=== PATIENT | male | born 1995 | race Caucasian/White ===

== ENCOUNTER 2016-12-13 14:36 | Emergency (ER) | payer SELFPAY ==
[~2016-12-13] VITALS: Wt 70.0 kg
[~2016-12-13 14:36] MED LIST: BACTDS PO; ELIM TOP; HYDR-3498 PO; KENC1 TOP
[2016-12-13 17:50] LABS: ADD SCAN DIFF NO
[2016-12-13 17:51] LABS: BASOPHIL # 0.1 10^3/ul (0.0-0.1); BASOPHILS % 0.6 % (0.0-2.0); EOSINOPHILS # 0.1 10^3/ul (0.0-0.5); EOSINOPHILS % 1.6 % (0.0-7.0); HEMATOCRIT 41.8 % (42.0-52.0); HEMOGLOBIN 14.3 g/dl (14.0-18.0); LYMPHOCYTES # 2.2 10^3/ul (0.8-2.9); LYMPHOCYTES % 26.5 % (15.0-51.0); MEAN CORPUSCULAR HEMOGLOBIN 30.2 pg (29.0-33.0); MEAN CORPUSCULAR HGB CONC 34.2 g/dl (32.0-37.0); MEAN CORPUSCULAR VOLUME 88.4 fl (82.0-101.0); MEAN PLATELET VOLUME 10.3 fl (7.4-10.4); MONOCYTE # 0.9 10^3/ul (0.3-0.9); MONOCYTES % 10.5 % (0.0-11.0); NEUTROPHIL # 4.9 10^3/ul (1.6-7.5); NEUTROPHILS % 60.6 % (39.0-77.0); PLATELET COUNT 257 10^3/UL (140-415); RED BLOOD COUNT 4.73 10^6/ul (4.70-6.10); WHITE BLOOD COUNT 8.1 10^3/ul (4.8-10.8)
[2016-12-13 18:03] LABS: ALBUMIN 4.7 g/dl (3.3-4.9); POTASSIUM 4.1 mmol/L (3.5-5.1)
[2016-12-13 18:05] LABS: BILIRUBIN,INDIRECT 0.3 mg/dl (0-1.1); BILIRUBIN,TOTAL 0.3 mg/dl (0.2-1.3); CREATININE 0.81 mg/dl (0.61-1.24)
[2016-12-13 18:06] LABS: ALBUMIN/GLOBULIN RATIO 1.38; CALCIUM 9.9 mg/dl (8.4-10.2); TOTAL PROTEIN 8.1 g/dl (6.1-8.1)
[2016-12-13] MEDS ORDERED: SOD CHLORIDE 0.9% 100 ML ONE (18:19)
[2016-12-13] MEDS ORDERED: IOHEXOL 300MG/ML 150 ML BTL ONE (18:19)
--- NOTE | 2016-12-13 19:05 | RADRPT ---
PROCEDURE: CT Abdomen and Pelvis with Contrast CLINICAL INDICATION: Abdominal pain TECHNIQUE: Transaxial images were obtained through the abdomen and pelvis on a multi-slice scanner following the intravenous administration of iodinated contrast. No oral contrast had previously be en given. Sagittal and coronal re-formations were subsequently reconstructed. One or more of the following dose reduction techniques were used: - Automated exposure control. - Adjustment of the mA and/or kV according to patient size. - Use of iterative reconstruction technique. Radiation dose: CTDIvol = 5.37 mGy; DLP = 286.62 mGy-cm. COMPARISON: No prior studies are available for comparison. FINDINGS: Lung bases: The visualized lung bases appear unremarkable. Liver: The liver is mildly enlarged but no focal lesion is evident. The hepatic and portal veins ar e patent. Gallbladder: The wall is not thickened. No radiopaque stones are identified. Bile ducts: The intra and extrahepatic bile ducts are normal in caliber. Pancreas: Appears normal with no mass or inflammation evident. Spleen: Normal in size with no focal lesion. Adrenals: Normal with no mass identified. Kidneys, ureters and bladder: The kidneys enhance normally and are normal in size and there is no ma ss, pathological calcification, or hydronephrosis evident. There is no perinephric stranding. The ur eters are normal in caliber and no ureteroliths are identified. The bladder appears unremarkable. Reproductive organs: Unremarkable. Stomach, bowel, and mesentery: The stomach appears unremarkable. There is no evidence of bowel obst ruction. There is increased neck mass to the rectum with slight stranding of the perirectal fat almaraz sing the suspicion of proctitis. No other area of bowel inflammation is evident.. Appendix: A normal vermiform appendix is evident. Peritoneum: No free intraperitoneal fluid or air is identified. Aorta: Normal in caliber with no aneurysmal dilatation. IVC: Unremarkable. Lymph nodes: A few perirectal nodes up to 5 mm in diameter are noted. Osseous structures: The osseous elements appear intact. There is a combination of slight posterior s purring with a 4 mm central posterior disk protrusion at L5-S1. IMPRESSION: 1. Thickening of the rectal wall with slight stranding in the adjacent fat along with perirectal ly mph nodes suspicious for proctitis. The bowel is otherwise unremarkable without evidence of obstruc tion or inflammation and with a normal-appearing vermiform appendix evident. 2. No evidence of urinary outflow obstruction or ureterolithiasis. The bladder appears normal. 3. Mild hepatomegaly with no focal lesion. 4. Posterior spurring with a 4 mm central posterior disk protrusion and L5-S1. Physician Tana Date Time Electronically viewed and signed by Buster Martinez Physician on 12/13/2016 19:05 /
[2016-12-13] MEDS ORDERED: METR500T PO (19:26)
[2016-12-13] MEDS ORDERED: DOCU-144 PO (19:26)
[2016-12-13] MEDS ORDERED: CIPR500T4 PO (19:26)
[2016-12-13] MEDS ORDERED: TRAM-40 PO (19:27)
[2016-12-13] MEDS ORDERED: CEFTRIAXONE 1 GM/50 ML (PMX) 50 ML IVPB ONE (19:30)
[2016-12-13] MEDS ORDERED: CIPROFLOXACIN 400MG/D5W 200 ML IVPB ONE (19:30)
--- NOTE | 2016-12-13 19:48 | ERD ---
ER Documentation Chief Complaint Date/Time DATE: 12/13/16 TIME: 19:45 Chief Complaint PAIN ON BM AND SOME BLOOD IN STOOLS INTERMITTENT FOR 4 DAYS. NO AP HPI This 21-year-old male presents with a four-day history of pain with bowel movements and some bright red blood in the stool associated with some mucus and discharge. Feels that some pain is on the inside of his rectum. He denies any external lesions. Further history by patient after examination treatment shows that he is being treated for possible STD exposure with postexposure prophylaxis for HIV and been told he likely has symptoms of gonorrhea but he denies any anal receptive course ROS All systems reviewed and are negative except as per history of present illness. Medications Home Meds Active Scripts Tramadol Hcl* (Ultram*) 50 Mg Tablet, 50 MG PO Q6H Y for PAIN, #14 TAB Prov:EVGENY MEDINA MD 12/13/16 Docusate Sodium* (Colace*) 100 Mg Capsule, 100 MG PO BID, #20 CAP Prov:EVGENY MEDINA MD 12/13/16 Metronidazole* (Flagyl*) 500 Mg Tablet, 500 MG PO BID for 7 Days, TAB Prov:EVGENY MEDINA MD 12/13/16 Ciprofloxacin Hcl* (Ciprofloxacin Hcl*) 500 Mg Tablet, 500 MG PO BID for 7 Days , TAB Prov:EVGENY MEDINA MD 12/13/16 Hydrocodone Bit-Acetaminophen* ([place]*) 5-325 Mg Tab, 1 TAB PO Q6 Y for PAIN, # 10 TAB Prov:EVGENY MEDINA MD 11/12/15 Sulfamethoxazole-Trimethoprim* (Bactrim* DS) 800-160 Mg Tab, 1 TAB PO BID, #10 TAB Prov:EVGENY MEDINA MD 11/11/15 Triamcinolone Acetonide (Triamcinolone Acetonide) 0.1% - 15 Gm Cream.gm., 1 APPLIC TOP twice a day for 7 Days, TUB 30 g Prov:EVGENY MEDINA MD 11/11/15 Permethrin* (Elimite*) 5% Cr, 1 APPLIC TOP ONCE for 1 Day, TUB 1 Refill Apply at night and wash off in morning. Avoid eyes and mouth. Okay to dispense 2 tubes. Prov:EVGENY MEDINA MD 11/11/15 Allergies Allergies: Coded Allergies: No Known Drug Allergies (Verified Allergy, Mild, 11/11/15) PMhx/Soc History of Surgery: Yes (HERNIA REPAIR) Anesthesia Reaction: No Hx Neurological Disorder: No Hx Respiratory Disorders: No Hx Cardiac Disorders: No Hx Psychiatric Problems: No Hx Miscellaneous Medical Probl: No Hx Alcohol Use: No Hx Substance Use: No Hx Tobacco Use: No Smoking Status: Never smoker Physical Exam Vitals Vital Signs Date Time Temp Pulse Resp B/P Pulse Ox O2 Delivery O2 Flow Rate FiO2 12/13/16 14:48 98.6 63 20 121/59 98 Physical Exam Const: [] Alert, [id number] Head: Atraumatic Eyes: Normal Conjunctiva ENT: Normal External Ears, Nose and Mouth. Neck: Full range of motion..~ No meningismus. Resp: Clear to auscultation bilaterally Cardio: Regular rate and rhythm, no murmurs Abd: Soft, non tender, non distended. Normal bowel sounds. Rectal exam shows some tenderness possible fullness at 8:00 on the rectum. There is no external erythema, induration or fluctuance. There is no active discharge or bleeding. Skin: No petechiae or rashes Back: No midline or flank tenderness Ext: No cyanosis, or edema Neur: Awake and alert Psych: Normal Mood and Affect Result Diagram: 12/13/160 12/13/161739 Results 24 hrs Laboratory Tests Test 12/13/16 17:40 Alanine Aminotransferase (ALT/SGPT) 29IU/L Albumin 4.7g/dl Albumin/Globulin Ratio 1.38 Alkaline Phosphatase 83IU/L Anion Gap 19 Aspartate Amino Transf (AST/SGOT) 29IU/L Basophils # 0.110^3/ul Basophils % 0.6% Blood Urea Nitrogen 16mg/dl Calcium Level 9.9mg/dl Carbon Dioxide Level 29mmol/L Chloride Level 103mmol/L Creatinine 0.81mg/dl Direct Bilirubin 0.00mg/dl Eosinophils # 0.110^3/ul Eosinophils % 1.6% Globulin 3.40g/dl Glucose Level 106mg/dl Hematocrit 41.8% Hemoglobin 14.3g/dl Indirect Bilirubin 0.3mg/dl Lipase 70U/L Lymphocytes # 2.210^3/ul Lymphocytes % 26.5% Mean Corpuscular Hemoglobin 30.2pg Mean Corpuscular Hemoglobin Concent 34.2g/dl Mean Corpuscular Volume 88.4fl Mean Platelet Volume 10.3fl Monocytes # 0.910^3/ul Monocytes % 10.5% Neutrophils # 4.910^3/ul Neutrophils % 60.6% Nucleated Red Blood Cells # 0.010^3/ul Nucleated Red Blood Cells % 0.0/100WBC Platelet Count 76007^3/UL Potassium Level 4.1mmol/L Red Blood Count 4.7310^6/ul Red Cell Distribution Width 12.0% Sodium Level 147mmol/L Total Bilirubin 0.3mg/dl Total Protein 8.1g/dl White Blood Count 8.110^3/ul Current Medications Medications (Trade) Dose Ordered Sig/Carlos Route PRN Reason Start Time Stop Time Status Last Admin Dose Admin IV Flush 10 ml 10 ml STK-MED ONCE .ROUTE 12/13/16 18:19 12/13/16 18:20 DC 12/13/16 18:34 Sodium Chloride (NS) 100 ml @ ud STK-MED ONCE .ROUTE 12/13/16 18:19 12/13/16 18:20 DC 12/13/16 18:34 Iohexol 150 ml 150 ml STK-MED ONCE .ROUTE 12/13/16 18:19 12/13/16 18:20 DC 12/13/16 18:34 Ceftriaxone Sodium 50 ml @ 100 mls/hr ONCE ONCE IVPB 12/13/16 19:30 12/13/16 19:30 DC Ciprofloxacin/ Dextrose 200 ml @ 200 mls/hr ONCE ONCE IVPB 12/13/16 19:30 12/13/16 20:29 12/13/16 19:24 Ceftriaxone Sodium/Sodium Chloride (Rocephin/NS) 50 ml @ 0 mls/hr ONCE ONCE IVPB 12/13/16 20:00 12/13/16 20:01 Procedures/MDM Given possible signs of perirectal abscess IV was obtained. CBC and CMP showed no acute abnormalities. CT abdomen pelvis with IV contrast shows some thickening of the of the rectal wall with some possible stranding. There is no notable abscess. Findings are consistent with possible proctitis. Patient was given Cipro 400 mg IV and Rocephin 500 mg IV given history of possible symptoms of gonorrhea. He may have gonorrhea proctitis. Patient shows no evidence of abscess, acute abdomen, sepsis. Will treat with Cipro and Flagyl and Colace at home instructions to follow-up his primary doctor and consider surgery evaluation for persistent symptoms. He should otherwise return for fevers, vomiting, new or worsening symptoms. The patient was stable with no new complaints during the ER course. Clinically, there is no current evidence to suggest meningitis, sepsis, acute abdomen, pneumonia, acute coronary syndrome, pulmonary embolism, or any other emergent condition appearing to require further evaluation or hospitalization. The patient should certainly return for any new or worsening symptoms per the aftercare instructions. They should otherwise follow-up with her primary care doctor for reevaluation this week. Departure Diagnosis: Primary Impression: Proctitis Condition: Stable Patient Instructions: An-Anal Abscess, Abx Only Additional Instructions: Signs of proctitis seen on CT scan. Recheck with primary doctor possible surgeon for further evaluation for persistent symptoms. Recheck otherwise for fevers, vomiting, worsening symptoms EVGENY MEDINA MD Dec 13, 2016 19:48
[2016-12-13] MEDS ORDERED: CEFTRIAXONE 500 MG in SOD CHLORIDE 0.9% 50 ML IVPB ONE (20:00)
[2016-12-13 21:01] VITALS: BP 123/75; PULSE 72; RESP 16; TEMP 97.9
== END 2016-12-13 21:02 | disposition home or self-care (01) ==
LOC: FTE 14:36
DX: K62.89 Other specified diseases of anus and rectum (principal)
CPT/HCPCS: 36415; 74177; 80053; 83690; 85025; 96374; 96375; 99285; J0696; J0744; Q9967

== ENCOUNTER 2018-05-02 13:55 | Emergency (ER) | END 2018-05-02 16:58 | disposition home or self-care (01) ==

== ENCOUNTER 2019-01-23 00:09 | Emergency (ER) | payer SELFPAY ==
[~2019-01-23] VITALS: Ht 167.6 cm; Wt 62.1 kg
[~2019-01-23 00:09] MED LIST changes: +ACET325T33 PO; +CEPH-443 PO; +CIPR500T4 PO; +DOCU-144 PO; -KENC1 TOP; +METR500T PO; +SULF1TAB31 PO; +TRAM50TA PO; +TRIA15CR55 TOP
[2019-01-23 00:12] VITALS: BP 128/83; PULSE 96; RESP 20; Ht 167.6 cm; Wt 62.1 kg
== END 2019-01-23 02:25 | disposition left against medical advice (07) ==
LOC: FTE 00:09
DX: Z53.21 Procedure and treatment not carried out due to patient leaving prior to being seen by health care provider (principal)